=== PATIENT | male | born 1950 | race Caucasian/White ===

== ENCOUNTER 2018-03-18 08:35 | Emergency (ER) | payer BC ==
[~2018-03-18 08:35] MED LIST changes: -ASPI-1471 PO; -CLOP75TA43 PO; -LISI2.5T60 PO; -METO25TA23 PO
[2018-03-18] MEDS ORDERED: ASPI-1471 PO (08:47)
[2018-03-18] MEDS ORDERED: LISI2.5T60 PO (08:47)
[2018-03-18] MEDS ORDERED: METO25TA23 PO (08:48)
[2018-03-18] MEDS ORDERED: CLOP75TA43 PO (08:48)
--- NOTE | 2018-03-18 08:50 | ER Report ---
History and Physical Time Seen By MD: 08:50 Hx. of Stated Complaint: PT WAS AT WORK THIS AM STARTED FEELING DIZZY AND FAINT, DENIES ANY CHEST PAIN. PT HAS HX OF WI X4. HPI/ROS CHIEF COMPLAINT: dizziness, short of breath HISTORY OF PRESENT ILLNESS: This is a 67 year old male. He was at work and started to feel dizzy, a near syncope feeling. He had a history of hypoglycemic episodes in the past so had something to eat and drink, but then was worried and started to feel short of breath, like he could not get a deep breath. [place] panicky. Has never had an anxiety attack in the past, but family has a history of these. Had some mild chest pressure. No chest pain with the initial symptoms. He does have a history of WI in the past, but normal follow-ups since. He has not been sick recently. No fevers or chills. No abdominal pain. Diaphoretic. No weakness or numbness. Normal bowels and bladder function. REVIEW OF SYSTEMS: As above. Allergies: Coded Allergies: Sulfa (Sulfonamide Antibiotics) (Verified Allergy, Unknown, CHILDHOOD ALLERGY, 08/15/16) Uncoded Allergies: AVOIDS PERCOSET (Adverse Reaction, Mild, LOSS OF APPETITE, 11/14/10) Home Meds Reported Medications Clopidogrel Bisulfate (PLAVIX) 75 Mg Tablet, 1 TAB PO QDAY, TAB 03/18/18 Metoprolol Succinate (METOPROLOL SUCCINATE) 25 Mg Tab.er.24h, PO QDAY, TAB 03/18/18 Lisinopril (LISINOPRIL) 2.5 Mg Tablet, 2.5 MG PO QDAY 03/18/18 Aspirin (ASPIR 81) 81 Mg Tablet.dr, 81 MG PO QDAY, TAB 03/18/18 Reviewed Nurses Notes: Yes Hx Smoking: No Smoking Status: Former Smoker Hx Substance Use Disorder: No Hx Alcohol Use: Yes (occ) Constitutional Vital Sign - Last 24 Hours 03/18/18 03/18/18 03/18/18 03/18/18 08:37 08:38 08:50 09:05 Temp 98.4 Pulse 61 64 61 Resp 20 19 10 B/P (MAP) 137/83 137/83 (101) Pulse Ox 95 98 95 O2 Delivery Room Air 03/18/18 03/18/18 03/18/18 03/18/18 09:20 09:35 09:50 10:05 Pulse 61 60 60 61 Resp 6 11 9 11 Pulse Ox 95 93 91 90 03/18/18 03/18/18 03/18/18 03/18/18 10:10 10:40 11:05 11:10 Pulse 61 61 61 Resp 12 14 19 B/P (MAP) 115/83 (94) Pulse Ox 96 95 92 03/18/18 03/18/18 03/18/18 03/18/18 11:15 11:22 11:27 11:30 Pulse 60 60 Resp 15 B/P (MAP) 121/77 (92) 122/80 (94) Pulse Ox 93 03/18/18 03/18/18 03/18/18 03/18/18 11:42 11:57 12:12 12:42 Pulse 61 60 60 61 Resp 13 10 18 25 Pulse Ox 93 96 Physical Exam General Appearance: The patient is alert. He is having some acute distress. Feels like he cannot get a deep breath. Oxygen saturations normal. Eyes: Pupils are equal, round. Reactive to light. No pallor, injection or icterus. Extraocular movements are intact. ENT: Mucous membranes are moist. Normal oral mucosa. Posterior oropharynx is normal. Neck: Supple and non tender. Respiratory: Lungs are clear to auscultation. There are no retractions, but he is working hard to breath. Cardiovascular: Regular rate and rhythm. No murmurs, gallops or rubs. Normal capillary refill. No edema. Gastrointestinal: Abdomen is soft and non tender. Nondistended. Neurological: Alert and oriented x3. Cranial nerves II through XII show no acute deficits on my exam. No focal neurologic deficits in the extremities. Skin: Warm and diaphoretic. No rashes. Musculoskeletal: Extremities are nontender. Full range of motion. No tenderness in palpation of the cervical, thoracic and lumbar spine. DIFFERENTIAL DIAGNOSIS: After history and physical exam, differential diagnosis was considered for shortness of breath including but not limited to pulmonary infectious process, COPD, pulmonary embolus and congestive heart failure. Also with dizziness including but not limited to orthostatic causes including dehydration and panic/anxiety. Medical Decision Making Data Points Result Diagram: 03/18/18 0830 03/18/18 0830 Laboratory Hematology Test 03/18/18 08:30 03/18/18 11:34 Red Blood Count 5.30 M/uL (4.00-5.60) Mean Corpuscular Volume 80.8 fL (80.0-96.0) Mean Corpuscular Hemoglobin 27.1 pg (26.0-33.0) Mean Corpuscular Hemoglobin Concent 33.6 g/dL (32.0-36.0) Red Cell Distribution Width 16.8 % (11.5-14.5) Mean Platelet Volume 9.4 fL (7.2-11.1) Neutrophils (%) (Auto) 64.6 % (39.4-72.5) Lymphocytes (%) (Auto) 27.0 % (17.6-49.6) Monocytes (%) (Auto) 5.7 % (4.1-12.4) Eosinophils (%) (Auto) 1.4 % (0.4-6.7) Basophils (%) (Auto) 1.3 % (0.3-1.4) Nucleated RBC Relative Count (auto) 0.1 /100WBC Neutrophils # (Auto) 3.9 K/uL (2.0-7.4) Lymphocytes # (Auto) 1.6 K/uL (1.3-3.6) Monocytes # (Auto) 0.3 K/uL (0.3-1.0) Eosinophils # (Auto) 0.1 K/uL (0.0-0.5) Basophils # (Auto) 0.1 K/uL (0.0-0.1) Nucleated RBC Absolute Count (auto) 0.00 K/uL D-Dimer Quantitative (PE/DVT) 0.45 ug/ml (0-0.50) Sodium Level 140 mmol/L (137-145) Potassium Level 4.1 mmol/L (3.5-5.0) Chloride Level 104 mmol/L (98-107) Carbon Dioxide Level 23 mmol/L (22-30) Blood Urea Nitrogen 32 mg/dl (9-21) Creatinine 1.20 mg/dl (0.66-1.25) Glomerular Filtration Rate Calc > 60.0 Random Glucose 125 mg/dl (75-110) Calcium Level 9.1 mg/dl (8.4-10.2) Total Bilirubin 0.4 mg/dl (0.2-1.3) Aspartate Amino Transf (AST/SGOT) 28 U/L (0-35) Alanine Aminotransferase (ALT/SGPT) 33 U/L (0-56) Alkaline Phosphatase 93 U/L (0-126) B-Type Natriuretic Peptide 27 pg/ml (0-100) Total Protein 7.5 g/dl (6.3-8.2) Albumin 4.2 g/dl (3.5-5.0) Troponin I < 0.012 ng/ml Chemistry Test 03/18/18 08:30 03/18/18 11:34 White Blood Count 6.0 k/uL (4.5-11.0) Red Blood Count 5.30 M/uL (4.00-5.60) Hemoglobin 14.4 g/dL (14.0-18.0) Hematocrit 42.8 % (42.0-52.0) Mean Corpuscular Volume 80.8 fL (80.0-96.0) Mean Corpuscular Hemoglobin 27.1 pg (26.0-33.0) Mean Corpuscular Hemoglobin Concent 33.6 g/dL (32.0-36.0) Red Cell Distribution Width 16.8 % (11.5-14.5) Platelet Count 172 K/uL (150-450) Mean Platelet Volume 9.4 fL (7.2-11.1) Neutrophils (%) (Auto) 64.6 % (39.4-72.5) Lymphocytes (%) (Auto) 27.0 % (17.6-49.6) Monocytes (%) (Auto) 5.7 % (4.1-12.4) Eosinophils (%) (Auto) 1.4 % (0.4-6.7) Basophils (%) (Auto) 1.3 % (0.3-1.4) Nucleated RBC Relative Count (auto) 0.1 /100WBC Neutrophils # (Auto) 3.9 K/uL (2.0-7.4) Lymphocytes # (Auto) 1.6 K/uL (1.3-3.6) Monocytes # (Auto) 0.3 K/uL (0.3-1.0) Eosinophils # (Auto) 0.1 K/uL (0.0-0.5) Basophils # (Auto) 0.1 K/uL (0.0-0.1) Nucleated RBC Absolute Count (auto) 0.00 K/uL D-Dimer Quantitative (PE/DVT) 0.45 ug/ml (0-0.50) Glomerular Filtration Rate Calc > 60.0 Calcium Level 9.1 mg/dl (8.4-10.2) Total Bilirubin 0.4 mg/dl (0.2-1.3) Aspartate Amino Transf (AST/SGOT) 28 U/L (0-35) Alanine Aminotransferase (ALT/SGPT) 33 U/L (0-56) Alkaline Phosphatase 93 U/L (0-126) B-Type Natriuretic Peptide 27 pg/ml (0-100) Total Protein 7.5 g/dl (6.3-8.2) Albumin 4.2 g/dl (3.5-5.0) Troponin I < 0.012 ng/ml Coagulation Test 03/18/18 08:30 D-Dimer Quantitative (PE/DVT) 0.45 ug/ml EKG/Imaging EKG Interpretation 12 lead EKG: Atrial paced rhythm Imaging CHEST PA AND LAT Indication: Respiratory distress, dizzy, nausea's. Comparison: Chest x-ray 08/15/2016. Findings: Lungs: There is mild hyperinflation and flattening the diaphragms. The lungs are clear. Mediastinum/pulmonary vasculature: Heart size and pulmonary vasculature are normal. Bones/soft tissues: Internal cardiac defibrillator is seen, with leads in good position. IMPRESSION: 1. Clear lungs. 2. Mild hyperinflation consistent with COPD. Report Dictated By: Carlos Tran at 03/18/2018 9:30 AM ED Course/Re-evaluation Clinical Indication for ER IV: Hydration, IV Access ED Course After the initial evaluation, with vital signs being stable and good oxygen saturations, this appears to be more likely anxiety. We will check cardiac troponin and EKG given his history. EKG showed paced rhythm. Initial troponin negative. We did give him Ativan 0.5 mg IV initially and on reevaluation after this he is much more comfortable and feels much better. No further shortness of breath or chest tightness. When he would get up to the bathroom, only very mild dizziness. Laboratory studies otherwise unremarkable other than an elevated BUNs of 32 with a creatinine of 1.2. Blood sugar is 125. Repeat troponin 3 hours later was negative. The patient still is asymptomatic and feels fine. Discharged home with instructions to follow up with his primary care provider as well as cardiology given his cardiac history. Decision to Disposition Date: Mar 18, 2018 Decision to Disposition Time: 12:39 Depart Departure Latest Vital Signs Vital Signs Date Time Temp Pulse Resp B/P (MAP) Pulse Ox O2 Delivery O2 Flow Rate FiO2 03/18/18 12:42 61 25 03/18/18 11:57 96 03/18/18 11:30 122/80 (94) 03/18/18 08:37 98.4 Room Air Impression: Primary Impression: Shortness of breath Additional Impression: Dizziness Condition: Improved Disposition: HOME OR SELF-CARE Referrals: LORA TEMPLE DO (PCP) Patient Instructions: Dizziness (ED) Additional Instructions: We are unsure what caused the dizziness and shortness of breath. Based on the history of what happened, we suspect that this was from a low blood sugar and then some anxiety. No evidence of heart attack, blood clots, pneumonia, or other problems on evaluation today. Follow-up with your regular doctor in the next 5-7 days for re-evaluation. Problem Qualifiers LIZ GUERRERO MD Mar 18, 2018 08:50
[2018-03-18] MEDS ORDERED: EMS NS 0.9%(*) 1000 ML BAG 1,000 ML IV ONE (09:00)
[2018-03-18] MEDS ORDERED: LORazepam 2 MG/ML VIAL IVP ONE (09:00)
--- NOTE | 2018-03-18 09:00 | EKG ---
FACILITY: [facility] PATIENT NAME: EDDIE FERMIN : [id number] MR: [id number] V: [id number] EXAM DATE: ORDERING PHYSICIAN: LIZ GUERRERO TECHNOLOGIST: DAMIÁN Test Reason : DIZZINESS Blood Pressure : / mmHG Vent. Rate : 063 BPM Atrial Rate : 063 BPM P-R Int : 106 ms QRS Dur : 080 ms QT Int : 408 ms P-R-T Axes : 041 031 061 degrees QTc Int : 417 ms Electronic atrial pacemaker When compared with ECG of 15-AUG-2016 10:27, T wave inversion no longer evident in Inferior leads Referred By: CESAR Confirmed By:
[2018-03-18 09:03] LABS: PLATELET COUNT, AUTOMATED 172 K/uL (150-450)
--- NOTE | 2018-03-18 09:35 | RADIOLOGY IMAGING REPORT ---
FACILITY: [facility] PATIENT NAME: Maged Camargo : 1950 MR: [id number] V: [id number] EXAM DATE: ORDERING PHYSICIAN: LIZ GUERRERO TECHNOLOGIST: Location: [facility] [place] Patient: Maged Camargo : 1950 Visit/Account:[id number] Date of Sevice: 03/18/2018 CHEST PA AND LAT Indication: Respiratory distress, dizzy, nausea's. Comparison: Chest x-ray 08/15/2016. Findings: Lungs: There is mild hyperinflation and flattening the diaphragms. The lungs are clear. Mediastinum/pulmonary vasculature: Heart size and pulmonary vasculature are normal. Bones/soft tissues: Internal cardiac defibrillator is seen, with leads in good position. IMPRESSION: 1. Clear lungs. 2. Mild hyperinflation consistent with COPD. Report Dictated By: Carlos Tran at 03/18/2018 9:30 AM Report E-Signed By: Carlos Tran at 03/18/2018 9:31 AM WSN:[id number]
[2018-03-18 11:30] VITALS: BP 122/80
== END 2018-03-18 12:50 | disposition home or self-care (01) ==
LOC: ER 08:51
DX: F41.9 Anxiety disorder, unspecified (principal); R06.02 Shortness of breath; R42 Dizziness and giddiness
CPT/HCPCS: 36415; 71046; 83880; 84484; 85025; 85379; 93005; 96360; 96361; 99284; J2060; 82040; 82247; 82310; 82374; 82435; 82565; 82947; 84075; 84132; 84155; 84295; 84450; 84460; 84520

== ENCOUNTER → 2018-03-18 | Outpatient (CLI) | payer BC ==
[~2018-03-18] MED LIST: ASP325 PO; ASPI-1471 PO; ASPI-715 PO; ASPI-719 PO; CLOP75TA43 PO; IBUP-1455 PO; LISI-362 PO; LISI2.5T60 PO; LISINOPRIL; LOR5/325 PO; METO25TA23 PO; NIT3 PO; ONDA4TAB PO; OXYC-865 PO; PLAVIX; SIMVASTATIN; TAMS0.4C25 PO
== END ==
LOC: AMB 08:13
PROVIDERS: ATTEND Nurse Practitioner
DX: R53.1 Weakness (principal); R06.02 Shortness of breath
CPT/HCPCS: A0425; A0427

== ENCOUNTER 2018-05-02 00:40 | Day surgery (SDC) | payer BC, MEDICARE ==
[~2018-05-02] VITALS: Ht 175.3 cm; Wt 82.1 kg
[~2018-05-02 00:40] MED LIST changes: +ASPI-1471 PO; +CLOP75TA43 PO; +LISI2.5T60 PO; +METO25TA23 PO
[2018-05-02 08:26] VITALS: BP 130/90
[2018-05-02] MEDS ORDERED: NORMOSOL R SOLN(*) 1000 ML BAG 1,000 ML IV PRN (08:30)
[2018-05-02] MEDS ORDERED: LIDOCAINE/SOD BICARB 8.4% SYR ID ONE (08:30)
[2018-05-02 10:16] VITALS: BP 119/81
[2018-05-02 10:37] VITALS: BP 133/91
[2018-05-02] MEDS ORDERED: PROPOFOL EMUL(*) 10MG/ML 20 ML 40 ML ONE (10:40)
[2018-05-02 10:42] VITALS: BP_SYST 123; BP_SYST 131; BP_DIAS 73; BP_DIAS 82
== END 2018-05-02 10:55 | disposition home or self-care (01) ==
LOC: OR 00:40
PROVIDERS: ATTEND Family Medicine
DX: Z12.11 Encounter for screening for malignant neoplasm of colon (principal); K63.5 Polyp of colon; I25.10 Atherosclerotic heart disease of native coronary artery without angina pectoris; E78.5 Hyperlipidemia, unspecified; I10 Essential (primary) hypertension; Z86.010 Personal history of colon polyps; Z85.528 Personal history of other malignant neoplasm of kidney; I25.2 Old myocardial infarction; Z88.2 Allergy status to sulfonamides; Z88.8 Allergy status to other drugs, medicaments and biological substances; Z95.1 Presence of aortocoronary bypass graft; Z95.0 Presence of cardiac pacemaker
CPT/HCPCS: 00811; 45385; J2704

== ENCOUNTER 2018-06-26 10:06 | Emergency (ER) | payer BC, MEDICARE ==
[2018-06-26] MEDS ORDERED: NS(*) 0.9% 1000 ML BAG 1,000 ML IV ONE (10:22)
[2018-06-26] MEDS ORDERED: ONDANSETRON 4 MG/2 ML VIAL IVP ONE (10:25)
[2018-06-26] MEDS ORDERED: KETOROLAC 30 MG/ML VIAL IVP ONE (10:25)
[2018-06-26] MEDS ORDERED: fentaNYL CITR 100 MCG/2 ML AMP IVP ONE (10:25)
--- NOTE | 2018-06-26 10:28 | ER Report ---
History and Physical Time Seen By MD: 10:20 Hx. of Stated Complaint: Patient with right sided kidney pain that started 30 minutes ago. HPI/ROS CHIEF COMPLAINT: right flank pain HISTORY OF PRESENT ILLNESS: Patient is a 67-year-old male comes emergency Department today with complaint of left flank pain correction right flank pain which began several hours prior to presentation no urinary bladder bowel incontinence abdominal pain is localized to the right flank with radiation to the right lower quadrant. Patient cannot find a position of comfort sharp stabbing localized nausea without vomiting or additional complaints noted REVIEW OF SYSTEMS: Respiratory: No cough, no dyspnea. Cardiovascular: No chest pain, no palpitations. Gastrointestinal: Right flank pain Musculoskeletal: No back pain. Remainder of the 14 system rev: Yes Allergies: Coded Allergies: Sulfa (Sulfonamide Antibiotics) (Verified Allergy, Unknown, CHILDHOOD ALLERGY, 06/26/18) acetaminophen (Verified Adverse Reaction, Unknown, LOSS OF APPETITE, 06/26/18) oxycodone (Verified Adverse Reaction, Unknown, LOSS OF APPETITE, 06/26/18) Home Meds Reported Medications Clopidogrel Bisulfate (PLAVIX) 75 Mg Tablet, 1 TAB PO QDAY, TAB 03/18/18 Metoprolol Succinate (METOPROLOL SUCCINATE) 25 Mg Tab.er.24h, PO QDAY, TAB 03/18/18 Lisinopril (LISINOPRIL) 2.5 Mg Tablet, 2.5 MG PO QDAY 03/18/18 Aspirin (ASPIR 81) 81 Mg Tablet.dr, 81 MG PO QDAY, TAB 03/18/18 Reviewed Nurses Notes: Yes Old Medical Records Reviewed: Yes Hx Smoking: No Smoking Status: Former Smoker Hx Substance Use Disorder: No Hx Alcohol Use: Yes (occ) Constitutional Vital Sign - Last 24 Hours 06/26/18 10:11 Temp 97.5 Pulse 66 Resp 16 B/P (MAP) 151/86 Pulse Ox 95 O2 Delivery Room Air Physical Exam General Appearance: The patient is alert, has no immediate need for airway protection and no current signs of toxicity. Appears uncomfortable Eyes: Pupils equal and round no injection. Respiratory: Chest is non tender, lungs are clear to auscultation. Cardiac: regular rate and rhythm [ ] Gastrointestinal: Right flank percussive tenderness right upper abdominal discomfort otherwise unremarkable exam Musculoskeletal: Neck: Neck is supple and non tender. Extremities have full range of motion and are non tender. Skin: No rashes or lesions. [ ] DIFFERENTIAL DIAGNOSIS: After history and physical exam differential diagnosis was considered for kidney stone versus gallbladder versus appendicitis Medical Decision Making Data Points Result Diagram: 06/26/18 1012 06/26/18 1012 Laboratory Hematology Test 06/26/18 10:12 06/26/18 11:50 Red Blood Count 5.28 M/uL (4.00-5.60) Mean Corpuscular Volume 84.0 fL (80.0-96.0) Mean Corpuscular Hemoglobin 27.8 pg (26.0-33.0) Mean Corpuscular Hemoglobin Concent 33.0 g/dL (32.0-36.0) Red Cell Distribution Width 15.4 % (11.5-14.5) Mean Platelet Volume 9.2 fL (7.2-11.1) Neutrophils (%) (Auto) 64.6 % (39.4-72.5) Lymphocytes (%) (Auto) 26.1 % (17.6-49.6) Monocytes (%) (Auto) 6.9 % (4.1-12.4) Eosinophils (%) (Auto) 1.2 % (0.4-6.7) Basophils (%) (Auto) 1.2 % (0.3-1.4) Nucleated RBC Relative Count (auto) 0.1 /100WBC Neutrophils # (Auto) 3.9 K/uL (2.0-7.4) Lymphocytes # (Auto) 1.6 K/uL (1.3-3.6) Monocytes # (Auto) 0.4 K/uL (0.3-1.0) Eosinophils # (Auto) 0.1 K/uL (0.0-0.5) Basophils # (Auto) 0.1 K/uL (0.0-0.1) Nucleated RBC Absolute Count (auto) 0.01 K/uL Sodium Level 141 mmol/L (137-145) Potassium Level 4.5 mmol/L (3.5-5.0) Chloride Level 106 mmol/L (98-107) Carbon Dioxide Level 24 mmol/L (22-30) Blood Urea Nitrogen 25 mg/dl (9-21) Creatinine 1.30 mg/dl (0.66-1.25) Glomerular Filtration Rate Calc 54.7 Random Glucose 86 mg/dl (75-110) Calcium Level 9.3 mg/dl (8.4-10.2) Total Bilirubin 0.4 mg/dl (0.2-1.3) Aspartate Amino Transf (AST/SGOT) 27 U/L (0-35) Alanine Aminotransferase (ALT/SGPT) 28 U/L (0-56) Alkaline Phosphatase 86 U/L (0-126) Total Protein 7.6 g/dl (6.3-8.2) Albumin 4.1 g/dl (3.5-5.0) Urine Color Yellow Urine Clarity Slightly-cloudy Urine pH 5.0 pH (4.8-9.5) Urine Specific [place] 1.019 Urine Protein Negative mg/dL (NEGATIVE) Urine Glucose (UA) Negative mg/dL (NEGATIVE) Urine Ketones Negative mg/dL (NEGATIVE) Urine Blood Large (NEGATIVE) Urine Nitrite Negative (NEGATIVE) Urine Bilirubin Negative (NEGATIVE) Urine Urobilinogen Negative mg/dL (0.2-1.9) Urine Leukocyte Esterase Negative (NEGATIVE) Urine RBC 189 /HPF (0-2/HPF) Urine WBC 3 /HPF (0-5/HPF) Urine Squamous Epithelial Cells None /LPF (</=FEW) Urine Bacteria Few /HPF (NONE-FEW) Urine Hyaline Casts Moderate /LPF (NONE-FEW) Urine Mucus Few /HPF (NONE-FEW) Chemistry Test 06/26/18 10:12 06/26/18 11:50 White Blood Count 6.0 k/uL (4.5-11.0) Red Blood Count 5.28 M/uL (4.00-5.60) Hemoglobin 14.6 g/dL (14.0-18.0) Hematocrit 44.3 % (42.0-52.0) Mean Corpuscular Volume 84.0 fL (80.0-96.0) Mean Corpuscular Hemoglobin 27.8 pg (26.0-33.0) Mean Corpuscular Hemoglobin Concent 33.0 g/dL (32.0-36.0) Red Cell Distribution Width 15.4 % (11.5-14.5) Platelet Count 174 K/uL (150-450) Mean Platelet Volume 9.2 fL (7.2-11.1) Neutrophils (%) (Auto) 64.6 % (39.4-72.5) Lymphocytes (%) (Auto) 26.1 % (17.6-49.6) Monocytes (%) (Auto) 6.9 % (4.1-12.4) Eosinophils (%) (Auto) 1.2 % (0.4-6.7) Basophils (%) (Auto) 1.2 % (0.3-1.4) Nucleated RBC Relative Count (auto) 0.1 /100WBC Neutrophils # (Auto) 3.9 K/uL (2.0-7.4) Lymphocytes # (Auto) 1.6 K/uL (1.3-3.6) Monocytes # (Auto) 0.4 K/uL (0.3-1.0) Eosinophils # (Auto) 0.1 K/uL (0.0-0.5) Basophils # (Auto) 0.1 K/uL (0.0-0.1) Nucleated RBC Absolute Count (auto) 0.01 K/uL Glomerular Filtration Rate Calc 54.7 Calcium Level 9.3 mg/dl (8.4-10.2) Total Bilirubin 0.4 mg/dl (0.2-1.3) Aspartate Amino Transf (AST/SGOT) 27 U/L (0-35) Alanine Aminotransferase (ALT/SGPT) 28 U/L (0-56) Alkaline Phosphatase 86 U/L (0-126) Total Protein 7.6 g/dl (6.3-8.2) Albumin 4.1 g/dl (3.5-5.0) Urine Color Yellow Urine Clarity Slightly-cloudy Urine pH 5.0 pH (4.8-9.5) Urine Specific [place] 1.019 Urine Protein Negative mg/dL (NEGATIVE) Urine Glucose (UA) Negative mg/dL (NEGATIVE) Urine Ketones Negative mg/dL (NEGATIVE) Urine Blood Large (NEGATIVE) Urine Nitrite Negative (NEGATIVE) Urine Bilirubin Negative (NEGATIVE) Urine Urobilinogen Negative mg/dL (0.2-1.9) Urine Leukocyte Esterase Negative (NEGATIVE) Urine RBC 189 /HPF (0-2/HPF) Urine WBC 3 /HPF (0-5/HPF) Urine Squamous Epithelial Cells None /LPF (</=FEW) Urine Bacteria Few /HPF (NONE-FEW) Urine Hyaline Casts Moderate /LPF (NONE-FEW) Urine Mucus Few /HPF (NONE-FEW) Urinalysis Test 10/24/18 11:50 Urine Color Yellow Urine Clarity Slightly-cloudy Urine pH 5.0 pH (4.8-9.5) Urine Specific [place] 1.019 Urine Protein Negative mg/dL (NEGATIVE) Urine Glucose (UA) Negative mg/dL (NEGATIVE) Urine Ketones Negative mg/dL (NEGATIVE) Urine Blood Large (NEGATIVE) Urine Nitrite Negative (NEGATIVE) Urine Bilirubin Negative (NEGATIVE) Urine Urobilinogen Negative mg/dL (0.2-1.9) Urine Leukocyte Esterase Negative (NEGATIVE) Urine RBC 189 /HPF (0-2/HPF) Urine WBC 3 /HPF (0-5/HPF) Urine Squamous Epithelial Cells None /LPF (</=FEW) Urine Bacteria Few /HPF (NONE-FEW) Urine Hyaline Casts Moderate /LPF (NONE-FEW) Urine Mucus Few /HPF (NONE-FEW) ED Course/Re-evaluation ED Course E [facility] course medical decision making 67-year-old male comes in with acute right flank pain is a 1 mm stone in his UVJs also a small 3 mm stone this past was bladder which is probably the etiology of his acute discomfort. Toradol some pain medication IV fluids urinalysis negative kidney functions within normal limits to be discharge diagnoses non-obstructive kidney stone Decision to Disposition Date: Jun 26, 2018 Decision to Disposition Time: 12:14 Depart Departure Latest Vital Signs Vital Signs Date Time Temp Pulse Resp B/P (MAP) Pulse Ox O2 Delivery O2 Flow Rate FiO2 06/26/18 10:11 97.5 66 16 151/86 95 Room Air Impression: Primary Impression: Kidney calculi Condition: Improved Disposition: HOME OR SELF-CARE Referrals: LORA TEMPLE DO (PCP) CRIS OLEA MD 5 Days New Scripts Ketorolac Tromethamine (KETOROLAC TROMETHAMINE) 10 Mg Tab 10 MG PO Q6H PRN for PAIN, #12 TAB Prov: BERLIN CONNOR MD 06/26/18 Patient Instructions: Kidney Stones (DC) BERLIN CONNOR MD Jun 26, 2018 10:28
[2018-06-26 10:29] LABS: PLATELET COUNT, AUTOMATED 174 K/uL (150-450)
--- NOTE | 2018-06-26 11:27 | RADIOLOGY IMAGING REPORT ---
FACILITY: [facility] [place] PATIENT NAME: Maged Camargo : 1950 MR: [id number] V: [id number] EXAM DATE: ORDERING PHYSICIAN: BERLIN CONNOR TECHNOLOGIST: Location: [facility] Patient: Maged Camargo : 1950 Visit/Account:[id number] Date of Sevice: 06/26/2018 ABDOMEN/PELVIS W/O CONTRAST HISTORY: Right flank pain, history of renal cell carcinoma the left kidney with left nephrectomy in 1994 TECHNIQUE: Axial images acquired through the abdomen/pelvis. Coronal and sagittal reformatting also performed. No IV contrast administered.Dose Lowering Technique One of the following dose optimization techniques was utilized in the performance of this exam: Autom ated exposure control; adjustment of the mA and/or kV according to the patient's size; or use of an i terative reconstruction technique. Specific details can be referenced in the facility's radiology C T exam operational policy. COMPARISON: December 23, 2015 FINDINGS: Visualized lung bases: . Multiple small calcified and noncalcified pulmonary nodules in lung bases appears stable. There Are small pleural plaques seen bilaterally some of which contain tiny calcific ations Hepatobiliary: 1.5 cm cyst medial segment left lobe of the liver Spleen: Negative. Adrenals: Right adrenal gland appears unremarkable. Left adrenal gland not well seen Pancreas: Negative. Kidneys ureters and bladder: 1 mm nonobstructing calculus upper pole the right kidney no evidence of right hydronephrosis or hydroureter. There is a 3 mm calcification projecting along the posterior aspect of the bladder in the midline. A similar sized calcification is seen posterior right-sided the bladder on the prior study this could represent recent passage of a calculus from the distal right ureter versus small bladder stone versu s a small mural calcification within the bladder wall. There are postsurgical changes from a left nephrectomy no abnormalities identified in the nephrectomy bed Genitalia: Prostate gland is moderately enlarged impinging upon the floor the bladder GI: Of the cecum is now located in the left upper quadrant of the abdomen consistent with a mobile c ecum. This diverticular disease seen within the colon although no CT evidence of acute diverticuliti s. The appendix is visualized in the left mid abdomen and does not appear inflamed. There is a moderate hiatal hernia Vessels/spaces/nodes: There mild vascular calcifications about the abdomen and pelvis Bones/soft tissues: There is a small umbilical hernia containing fat and a small right inguinal joslyn ia containing fat Additional findings: There are spondylotic changes of the visualized thoracolumbar spine IMPRESSION: There is a 1 mm nonobstructing calculus upper pole the right kidney with no evidence of right hydrone phrosis or hydroureter Is a 3 mm calcification projecting along the posterior aspect of the bladder in the midline. A simil ar sized calcification was seen along the posterior right side the bladder on the prior study. This could represent recent passage of a calculus within the distal right ureter versus a small bladder st one versus a small mural calcination within the bladder Postsurgical changes from a left nephrectomy with no abnormality identified in the nephrectomy bed The cecum is now located in the left upper quadrant of abdomen consistent with a mobile cecum. There is no evidence of obstruction. Diverticular disease within the colon although no CT evidence of acute diverticulitis Small umbilical hernia containing fat and small right inguinal hernia containing fat Report Dictated By: Autumn Mendez MD at 06/26/2018 11:03 AM Report E-Signed By: Autumn Mendez MD at 06/26/2018 11:23 AM [id number]
[2018-06-26 12:00] VITALS: BP 125/76
[2018-06-26] MEDS ORDERED: KET10 PO (12:15)
== END 2018-06-26 12:23 | disposition home or self-care (01) ==
LOC: ER 10:26
DX: N20.0 Calculus of kidney (principal)
CPT/HCPCS: 74176; 81001; 85025; 96361; 96374; 96375; 99284; J1885; J2405; J3010; J7030; 82040; 82247; 82310; 82374; 82435; 82565; 82947; 84075; 84132; 84155; 84295; 84450; 84460; 84520

== ENCOUNTER → 2018-07-02 | Outpatient (CLI) | payer BC, MEDICARE ==
[~2018-07-02] MED LIST changes: +KET10 PO; +TAMS0.4C70 PO
== END ==
LOC: LAB 15:08
PROVIDERS: ATTEND Urology
DX: N20.0 Calculus of kidney (principal)
CPT/HCPCS: 36415; 82310; 83519; 83735; 84100

== ENCOUNTER → 2018-07-23 | Outpatient (CLI) | payer BC, MEDICARE ==
[~2018-07-23] MED LIST changes: +SILO8CAP5 PO
== END ==
LOC: LAB 08:11
PROVIDERS: ATTEND Urology
DX: N20.0 Calculus of kidney (principal)
CPT/HCPCS: 82340; 82507; 82570; 83735; 83945; 84105